=== PATIENT | male | born 1980 | race Caucasian/White ===

== ENCOUNTER 2019-12-15 21:01 | Emergency (ER) | payer MEDICARE, MEDICAID, SELFPAY ==
--- NOTE | 2019-12-15 21:13 | W.ED.GENADLT ---
HPI - General Adult General: Stated complaint: LOWER BACK PAIN Time Seen by Provider: 12/15/19 21:06 History of Present Illness: HPI narrative: Patient arrived via ambulance with complaints of back pain. Patient has a longstanding history of back pain. Patient has had beer to drink this evening. Patient is deaf. Patient complained about shocks coming from his back. This is a recurrent problem. Has been living area for about 3 months do not have a primary care provider. Significant other says patient did fall and twisted his back earlier this evening and then he started having electric shocks in his back. MD complaint: Chronic low back pain. Onset (ago): year(s) Location: back Radiation: back Severity: moderate and similar to prior episodes Quality: stabbing Pain Consistency: intermittent Relieving factors: none Exacerbating factors: movement Associated symptoms: Deny chest pain, dyspnea, headache(s), nausea, rash or vomiting Review of Systems Const: Denies: fever, chills or body aches Eyes: Denies: change in vision or blurry vision ENMT: Reports: other (Deafness); Denies: throat pain or nasal congestion Card: Denies: chest pain or shortness of breath on exertion Resp: Denies: shortness of breath, productive cough or non-productive cough GI: Denies: abdominal pain, nausea or vomiting : Denies: difficulty urinating Musc: Reports: back pain; Denies: extremity pain Skin/Breast: Denies: rash Neuro: Denies: headache Psych: Denies: anxiety or depression Ted/Lymph: Denies: easy bruising Physical Exam Const: COMMON NORMALS: no apparent distress, average body habitus and oriented x3 HENMT: COMMON NORMALS: normocephalic HEAD & SCALP: normal to inspection and normocephalic FACE & SINUS: normal facial exam Eye: COMMON NORMALS: conjunctivae normal GENERAL EYE: normal appearance of both eyes CONJUNCTIVA: Yes conjunctivae normal Neck/C-Spine: COMMON NORMALS: no JVD Chest: COMMONS NORMALS: inspection of chest normal Resp: COMMON NORMALS: normal respiratory effort and clear to auscultation bilaterally AUSCULTATION: clear to auscultation bilaterally Cardio: COMMON NORMALS: no JVD, regular rate and regular rhythm RATE: regular rate RHYTHM: regular rhythm GI: COMMON NORMALS: normal to inspection, nondistended, normoactive bowel sounds Back/Pelvis: THORACIC SPINE/UPPER BACK: Yes pain with ROM LUMBAR SPINE/LOWER BACK: Yes lumbar spinal tenderness, Yes straight leg raise positive right and Yes straight leg raise positive left Extremity: COMMON NORMALS: normal to inspection and full ROM Neuro: COMMON NORMALS: oriented x3 Coding Level of Care Code 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
--- NOTE | 2019-12-15 21:21 | XRR_ITS ---
PROCEDURE INFORMATION: Exam: XR Lumbosacral Spine, 2 or 3 Views Exam date and time: 12/15/2019 10:25 PM Age: 39 years old Clinical indication: Low back pain; Patient HX: C/O chronic back pain; No known injury; Additional info: Fall TECHNIQUE: Imaging protocol: XR of the lumbosacral spine, 2 or 3 views. COMPARISON: [place] [id number] 10/16/2018 1:26 PM FINDINGS: Vertebrae: Normal. No acute fracture. Normal alignment. Soft tissues: Normal. XR/XR lumbar spine 2-3V* [id number] IMPRESSION: Unremarkable radiograph.
--- NOTE | 2019-12-15 21:22 | XRR_ITS ---
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 COMPARISON: No relevant prior studies available. FINDINGS: Vertebrae: The vertebral body alignment and stature is normal. Mild degenerative endplate changes in the midthoracic levels. Soft tissues: Normal. XR/XR thoracic spine 3V* [id number] IMPRESSION: No acute finding.
[2019-12-15 21:38] VITALS: BP 146/110; PULSE 97; RESP 18; TEMP 36.7; O2SAT 96; BMI 29.7
[2019-12-15] MEDS: ketorolac 60 mg/2 mL INJ IM (21:52)
[2019-12-15] MEDS: methylPREDNISolone (DEPO) 80 MG/ML INJ 1 mL IM (21:54)
[2019-12-15 22:44] VITALS: BP 131/93; PULSE 85; RESP 18; O2SAT 94
== END 2019-12-15 22:43 | disposition home or self-care (01) ==
PROVIDERS: Emergency Provider Nurse Practitioner Family
DX: M54.5 Low back pain (principal)
CPT/HCPCS: 72072; 72100; 96372; 99281; J1040; J1885

== ENCOUNTER 2020-06-01 03:40 | Emergency (ER) | payer MEDICARE, MEDICAID, SELFPAY ==
[2020-06-01 03:46] VITALS: BP 127/84; PULSE 70; RESP 18; TEMP 36.7; O2SAT 98; BMI 29.2
--- NOTE | 2020-06-01 04:24 | ED_ITS ---
HPI - Animal Bite General: Chief Complaint: Animal Bite Stated Complaint: BUG BITE; SWOLLEN/RED Time Seen by Provider: 06/01/20 04:12 History of Present Illness: HPI narrative: 39-year-old male who was in bed this morning when a beetle flew through the window, biting him on his right foot dorsum. He experienced pain with some mild swelling. They were worried be, because they did not know what then of the medial might carry. They brought the beetle specimen with them. MD complaint: other (Insect bite) Onset (ago): minute(s) Animal: other (Medial) Location - Extremities: Right: foot Pain description: constant Context: unprovoked Associated symptoms: Deny bleeding, chills, fever(s), headache(s), numbness or short of breath Review of Systems Const: Denies: fever(s) or chills Card: Denies: chest pain or palpitations Resp: Denies: dyspnea GI: Denies: abdominal pain, nausea or vomiting Skin/Breast: Reports: rash and skin tenderness; Denies: pruritus Neuro: Denies: headache(s) PFSH ED PFSH: Social History Smoking and tobacco status: never smoked Physical Exam Const: COMMON NORMALS: no acute distress, patient oriented x3 and alert HENMT: COMMON NORMALS: normocephalic HEAD & SCALP: normocephalic FACE & SINUS: normal facial exam Chest: COMMONS NORMALS: normal inspection of the chest Resp: COMMON NORMALS: normal respiratory effort, No use of accessory muscles and clear to auscultation bilaterally AUSCULTATION: clear to auscultation bilaterally Cardio: COMMON NORMALS: regular rate and regular rhythm RATE: regular rate RHYTHM: regular rhythm Neuro: COMMON NORMALS: patient oriented x3 SENSORIUM/ORIENTATION: Yes alert Skin: NARRATIVE SKIN EXAM: Minimal swelling of the dorsum of the right medial foot. No skin breakdown or puncture wound. No streaking. Minimal redness. Some tenderness. Course Vital Signs: Vital signs: Vital Signs Temperature 98.0 F 06/01/20 03:46 Pulse Rate 70 06/01/20 03:46 Respiratory Rate 18 06/01/20 03:46 Blood Pressure 127/84 06/01/20 03:46 Pulse Oximetry 98 06/01/20 03:46 Discharge Plan Discharge Patient Disposition: Home, Self-Care Clinical Impression: Insect bite (nonvenomous), right foot, initial encounter Condition: Stable Discharge Orders: Discharge Order (Routine); Ordered 06/01/20 Ordered By: Jv Izquierdo Discharge Diet: Usual diet Discharge Activity: Increase activity as tolerated Patient Instructions: Insect Bite or Sting (ED) Coding Level of Care Code ED 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
[2020-06-01 04:28] VITALS: RESP 18
[2020-06-01] MEDS: oxyCODONE-APAP 5-325 mg Tablet 1 TAB PO (04:28)
[2020-06-01] MEDS: dexamethasone 4 mg Tablet 10 MG PO (04:28)
== END 2020-06-01 04:30 | disposition home or self-care (01) ==
PROVIDERS: Emergency Provider Emergency Medicine
DX: S90.861A Insect bite (nonvenomous), right foot, initial encounter (principal); W57.XXXA Bitten or stung by nonvenomous insect and other nonvenomous arthropods, initial encounter
CPT/HCPCS: 12345; 99281; 99283; J8540